=== PATIENT | male | born 1960 | race Caucasian/White ===

== ENCOUNTER 2023-12-07 09:10 | Outpatient (OUT) | payer MEDICARE, OTHER, SELFPAY ==
--- NOTE | 2023-12-07 09:17 | CT_ITS ---
[address] [address] Patient Name: MARSHALL ARTEAGA MRN: [facility]:[id number] date: 1960 Sex: M Assigned Patient Location: CT Current Patient Location: CT Accession/Order Number: [id number] Exam Date: 12/07/2023 09:20 Report Date: 12/07/2023 12:30 At the request of: MALCOM VILLEDA Procedure: CT lumbar spine wo con EXAM: CT lumbar spine wo con CLINICAL INDICATION: Lumbar Radiculopathy Acute M54.16 COMPARISON: None TECHNIQUE: Multiple axial images were obtained of the lumbar spine. Soft tissue and bone windows in coronal and sagittal planes were obtained and reviewed. Dose reduction techniques were achieved by using automated exposure control and/or adjustment of mA and/or kV according to patient size and/or use of iterative reconstruction technique. FINDINGS: Trauma: No fracture, traumatic malalignment, facet dislocation, or epidural hemorrhage. Alignment: Slight levoconvex curvature with apex around L3-L4 could relate at least in part to patient positioning. Vertebral Body Heights: Maintained. Soft Tissues: Normal. Spondylotic Changes: Multilevel spondylotic changes include varying degrees of intervertebral disc height loss, endplate sclerosis, osteophytic ridging, and facet/ligamentum flavum hypertrophy. Disc height loss is most pronounced at L4-L5. T12-L1: Disc bulge and osteophytic ridging together minimally indent the ventral thecal sac. No high-grade spinal canal or foraminal narrowing. Mild bilateral facet hypertrophy. L1-L2: Slight disc bulge ventrally indents the ventral thecal sac. No high-grade spinal canal or foraminal narrowing. Mild bilateral facet hypertrophy. L2-L3: Small disc bulge and osteophytic ridging together indent the ventral thecal sac. Mild spinal canal narrowing. Mild bilateral foraminal narrowing. Mild bilateral facet hypertrophy. L3-L4: Disc bulge and osteophytic ridging together indent the ventral thecal sac. These in conjunction with moderate bilateral facet/ligamentum flavum hypertrophy overall result in at least moderate spinal canal narrowing. Moderate bilateral foraminal narrowing. L4-L5: Disc bulge and osteophytic ridging together indent the ventral thecal sac. These in conjunction with moderate bilateral facet/ligamentum flavum hypertrophy overall result in mild spinal canal narrowing. Moderate bilateral foraminal narrowing. L5-S1: Slight disc bulge minimally indents the ventral thecal sac. This in conjunction with mild bilateral facet hypertrophy overall result in mild spinal canal narrowing. Mild bilateral foraminal narrowing. CT/CT lumbar spine wo con IMPRESSION: 1. No acute osseous abnormalities in the lumbar spine. 2. Multilevel spondylotic changes with at least moderate spinal canal narrowing at L3-L4, contributed to by disc bulge, osteophytic ridging, and facet/ligamentum flavum hypertrophy. 3. Foraminal narrowing is moderate bilaterally at L3-L4 and L4-L5. Electronically authenticated by: HOLA BAXTER Date: 12/07/2023 12:30
== END 2023-12-07 09:11 | disposition home or self-care (01) ==
LOC: CT 09:10
PROVIDERS: PCP Internal Medicine; Visit Provider Nurse Practitioner Family
DX: M54.16 Radiculopathy, lumbar region (principal); M51.36 Other intervertebral disc degeneration, lumbar region; M54.32 Sciatica, left side; M54.50 Low back pain, unspecified; M47.816 Spondylosis without myelopathy or radiculopathy, lumbar region
CPT/HCPCS: 72131

== ENCOUNTER 2025-06-15 08:07 | Outpatient (OUT) | payer MEDICARE, OTHER, SELFPAY ==
--- OUTSIDE RECORDS SUMMARY | 2025-06-05 09:30 | XMS_ITS | Encounter Summary ---
Author Organization [facility] Address [address] [place] [address] Care Team Providers Care Anesthesiologist Assistant Certified Name Role Phone Rashaun Morales MD Primary Care Provider [phone] Barb Ocasio Unavailable [phone] Reason for Referral * Imaging (Routine) - AuthorizedSpecialtyDiagnoses / ProceduresReferred By ContactReferred To ContactRadiology Diagnoses Hypotension, unspecified hypotension type Dizziness Light headed Bradycardia Procedures Holter monitor Lenore Bray NP [address] [address] Phone: tel: fax: [facility] [address] [place] [address] Phone: tel: fax: Referral IDStatusReasonStart DateExpiration DateVisits RequestedVisits [id number] Encounter Details DateTypeDepartmentCare Team (Latest Contact Info)Evpghqhulfh82/04/2025 9:30 AM ESTOffice Visit [facility] [address] [facility] [address] [place] [address] Lenore Bray NP [address] [facility] [address] [place] [address] Hypotension, unspecified hypotension type (Primary Dx); Dizziness; Light headed; Bradycardia Social History Tobacco UseTypesPacks/DayYears UsedDateSmoking Tobacco: FormerCigarettesQuit: 2003Smokeless Tobacco: FormerChew Tobacco Cessation:Counseling Given: Yes Alcohol UseStandard Drinks/WeekCommentsYes0 (1 standard drink = 0.6 oz pure alcohol)AUDIT-CAnswerDate RecordedQ1: How often do you have a drink containing alcohol?4 or more times a week03/08/2023Q2: How many drinks containing alcohol do you have on a typical day when you are drinking?1 or Q3: How often do you have six or more drinks on one occasion?Never03/08/2023HQ-2AnswerDate RecordedPatient Health Questionnaire-2 Fpbby051Sex and Gender InformationValueDate RecordedSex Assigned at BirthNot on fileLegal SexMale 10/14/2022 7:00 PM EDTGender IdentityNot on fileSexual OrientationNot on file documented as of this encounter Last Filed Vital Signs Vital SignReadingTime TakenCommentsBlood Mvwmunep277/5806/05/2025 9:32 AM EST Smuos628806/05/2025 9:32 AM ESTTemperature--Respiratory Mmza854308/05/2024 9:32 AM ESTOxygen Kjgvwnlwdr57%06/05/2025 9:32 AM ESTInhaled Oxygen Concentration-- Yhiuau57.4 kg (186 lb)06/05/2025 9:32 AM UNUSoupoa481.8 cm (5' 10 )06/05/2025 9:32 AM ESTBody Mass Index26.6906/05/2025 9:32 AM ESTdocumented in this encounter Functional Status * Over the past 2 weeks, how often have you been bothered by any of the following problems?QuestionAnswerDate of AssessmentAuthorLittle interest or pleasure in doing thingsNot at all06/05/2025 9:27 AM Pancho WANeling down, depressed, or hopelessNot at all06/05/2025 9:27 AM SEDRICK WAN Patient Health Questionnaire-2 Szreq49508/05/2024 9:27 AM SEDRICK WAN documented as of this encounter Progress Notes * Lenore Bray NP - 06/05/2025 9:30 AM EST Images from the original note were not included. Subjective Patient ID: Hardki Mayo is a 65 y.o. male who presents for No chief complaint on file.. Hardik presents today for issues with his blood pressure running low. He states that he a stomach virous a week ago and he feels run down and his BP has been running lowsince he was sick. He is feeling lite headed and dizzy when he would stand up. He did have diarrheafor 3-4 days and he is still very tired Over the past 2 weeks, how often have you been bothered by any of the following problems? Little interest or pleasure in doing things: Not at all Feeling down, depressed, or hopeless: Not at all Patient Health Questionnaire-2 Score: 0 Current Outpatient Medications on File Prior to Visit Medication Sig Dispense Refill allopurinol (Zyloprim) 300 MG tablet TAKE 1 TABLET BY MOUTH DAILY 90 tablet 2 aspirin 81 MG EC tablet Take 1 tablet by mouth 1 (one) time each day at the same time. atorvastatin (Lipitor) 80 MG tablet TAKE 1 TABLET BY MOUTH AT BEDTIME 90 tablet 2 azithromycin (Zithromax) 250 MG tablet 2 tabs x 1 day, then 1 tab x 4 days. 6 tablet 0 cetirizine (ZyrTEC) 10 MG tablet Take 1 tablet by mouth Daily as needed for allergies. cyclobenzaprine (Flexeril) 10 MG tablet Take 1 tablet (10 mg) by mouth as needed at bedtime for muscle spasms 30 tablet 0 ezetimibe (Zetia) 10 MG tablet TAKE 1 TABLET BY MOUTH DAILY 90 tablet 2 fexofenadine (Laury) 180 MG tablet Take 1 tablet (180 mg) by mouth Daily as needed (alleriges) 90tablet 3 fexofenadine-pseudoephedrine ER (Laury-D 24) 180-240 MG 24 hr tablet Take 1 tablet by mouth Dailyfor 7 days Do not crush, chew, or split. 7 tablet 0 Fluticasone-Salmeterol 100-50 MCG/ACT aerosol powder INHALE 1 PUFF DAILY NEEDED for SHORTNESS OFBREATH 60 each 3 gabapentin (Neurontin) 300 MG capsule Take 300 mg by mouth in the morning and 300 mg before bedtime. meloxicam (Mobic) 15 MG tablet TAKE 1 TABLET BY MOUTH DAILY 90 tablet 2 olmesartan-hydroCHLOROthiazide (BENIcar HCT) 40-12.5 MG tablet TAKE 1 TABLET BY MOUTH IN THE MORNING 100 tablet 3 No current facility-administered medications on file prior to visit. I have reviewed and reconciled the history and medication list with the patient today. Allergies Allergen Reactions Penicillin G Unknown Sulfa Antibiotics Unknown Social History Tobacco Use Smoking status: Former Current packs/day: 0.00 Types: Cigarettes Quit date: 2002 Years since quittin.8 Smokeless tobacco: Former Types: Chew Vaping Use Vaping status: Never Used Substance Use Topics Alcohol use: Yes Drug use: Never Family History Problem Relation Name Age of Onset Prostate cancer Father Past Medical History: Diagnosis Date Hammer toe of right foot Hyperlipidemia Hypertension Past Surgical History: Procedure Laterality Date ARTHRODESIS Right 04/18/2019 1st ARTHRODESIS Right 08/18/2019 2nd PIP fusion, hardware removal IR INJECTION EPIDURAL STEROID Right 03/21/2024 L5-S1 IR INJECTION EPIDURAL STEROID 08/08/2024 L5-S1 Visit Vitals Smoking Status Former Review of Systems Constitutional: Positive for fatigue. HENT: Negative. Eyes: Negative. Respiratory: Negative. Cardiovascular: Negative. Gastrointestinal: Positive for diarrhea, nausea and vomiting. Genitourinary: Negative. Musculoskeletal: Negative. Skin: Negative. Neurological: Positive for dizziness, weakness and light-headedness. Psychiatric/Behavioral: Negative. Objective Physical Exam Vitals reviewed. Constitutional: Appearance: Normal appearance. HENT: Head: Normocephalic. Nose: Nose normal. Mouth/Throat: Mouth: Mucous membranes are moist. Pharynx: Oropharynx is clear. Eyes: Conjunctiva/sclera: Conjunctivae normal. Cardiovascular: Rate and Rhythm: Bradycardia present. Pulmonary: Effort: Pulmonary effort is normal. Skin: General: Skin is warm and dry. Neurological: General: No focal deficit present. Mental Status: He is oriented to person, place, and time. Psychiatric: Mood and Affect: Mood normal. Behavior: Behavior normal. Thought Content: Thought content normal. Judgment: Judgment normal. Assessment/Plan Diagnoses and all orders for this visit: Hypotension, unspecified hypotension type - Comprehensive metabolic panel; Future - Holter monitor; Future BP meds stopped at this time. Pt to continue to monitor BP. We will check some lab. If HR continuesto run low, and after results of testing, may need cardiology referral. Dizziness - Comprehensive metabolic panel; Future - Holter monitor; Future - BP meds stopped at this time. Pt to continue to monitor BP. We will check some lab. If HR continues to run low, and after results of testing, may need cardiology referral. Light headed - Comprehensive metabolic panel; Future - Holter monitor; Future - Await lab Bradycardia - Holter monitor; Future - BP meds stopped at this time. Pt to continue to monitor BP. We will check some lab. If HR continues to run low, and after results of testing, may need cardiology referral. No follow-ups on file. documented in this encounter Plan of Treatment NameTypePriorityAssociated DiagnosesOrder ScheduleHolter monitorImagingRoutine Hypotension, unspecified hypotension type Dizziness Light headed Bradycardia Expected: 06/05/2025 (Approximate), Expires: 06/05/2026documented as of this encounter Procedures Procedure NamePriorityDate/TimeAssociated DiagnosisCommentsCOMPREHENSIVE METABOLIC HUCKSRqyzfdq98/04/2025 1:10 PM EST Hypotension, unspecified hypotension type Dizziness Light headed documented in this encounter Results * Comprehensive metabolic panel (06/05/2025 1:10 PM EST)ComponentValueRef Range Test MethodAnalysis TimePerformed AtPathologist VpktanxqaUjpdxgp7855 - 99 mg/dLQUESTComment: ? Fasting reference interval XXE578 - 25 mg/dLQUESTCreatinine1.080.70 - 1.35 mg/nKNPMZNMRYZ93> OR = 60 mL/min/1.75q4PPGPSTWX/CREATININE RATIOSEE NOTE:6 (calc)QUESTComment: ?? Not Reported: BUN and Creatinine are within ?? reference range. ? Vteijp291090 - 146 mmol/LQUESTPotassium, Bld4.23.5 - 5.3 mmol/LOCJBRLhgjnvjj063 98 - 110 mmol/LQUESTCarbon Gjynoof1516 - 32 mmol/LQUESTCalcium9.88.6 - 10.3 mg/dLQUESTPROTEIN, TOTAL6.56.1 - 8.1 g/dLQUESTALBUMIN4.63.6 - 5.1 g/dLQUEST GLOBULIN1.91.9 - 3.7 g/dL (calc)QUESTALBUMIN/GLOBULIN RATIO2.41.0 - 2.5 (calc) QUESTBILIRUBIN, TOTAL0.90.2 - 1.2 mg/dLQUESTALKALINE KPANKWWITNE3411 - 144 U/L IZARMHJW4186 - 35 U/XMPNOYOSN781 - 46 U/LQUESTSpecimen (Source)Anatomical Location / LateralityCollection Method / VolumeCollection TimeReceived TimeBlood Venous blood specimen / Xwthkhn5206/05/2025 1:10 PM EST06/05/2025 1:10 PM EST Narrative Resulting Agency Comment Performing Organization Information ?Site ID: [id number] ?Name: [facility] ?Address: [address] [place] [id number] ?Director: Ameya Beltrán MD Authorizing ProviderResult TypeResult StatusLenore Bray NPLAB BLOOD ORDERABLESFinal ResultPerforming OrganizationAddressCity/State/ZIP CodePhone Number QUEST documented in this encounter Visit Diagnoses Diagnosis Hypotension, unspecified hypotension type- Primary Dizziness Dizziness and giddiness Light headed Dizziness and giddiness Bradycardia Other specified cardiac dysrhythmias documented in this encounter Care Teams Team MemberRelationshipSpecialtyStart DateEnd Date Rashaun Morales MD [address] [facility] [address] [place] [address] PCP - GeneralInternal Medicine12/08/22 aBrb Ocasio PA [address] [place] [address] [place] [address] PCP - ACO Reach09/08/24documented as of this encounter
--- OUTSIDE RECORDS SUMMARY | 2025-06-11 10:20 | XMS_ITS | Encounter Summary ---
Author Organization [facility] Address [address] [place] [address] Care Team Providers Care Senior Policy Associate Name Role Phone Rashaun Morales MD Primary Care Provider [phone] Reason for Visit * ReasonCommentsNew PatientPatient is here today to establish care as a new patient. Per Dr. Nunez request. Patient complainsof Dizziness/lightheaded, fatigue, chest tightness, SOB/PAULINO.Patient denies palpitations/racing heart. Patient states he is off his blood pressure medication, for about a week, Olmastartan which he feels is contributing to his low heart rate and dizziness.HypertensionPacemaker CheckDizzinessDizziness/lightheaded with position changes/bending overFatigueIncreased fatigueChest PainChest tightness which occurs when sittingShortness of BreathSOB/PAULINO with activity Encounter Details DateTypeDepartmentCare Team (Latest Contact Info)Lqtiwoenanr04/10/2025 10:20 AM ESTOffice Visit [facility] [address] [place] [address] Neno Emery MD [address] [place] [address] Dizziness (Primary Dx); Bradycardia; Palpable abdominal aorta Social History Tobacco UseTypesPacks/DayYears UsedDateSmoking Tobacco: FormerCigarettesStarted: 06/11/2005Smokeless Tobacco: NeverSex and Gender InformationValueDate Recorded Sex Assigned at BlczaTlvj12/07/2025 9:48 AM ESTLegal ZfnLxga67/05/2025 10:48 AM ESTGender XdjarbtoNxsh77/07/2025 9:48 AM ESTSexual OrientationHeterosexual or Xawpucrw14/07/2025 9:48 AM ESTdocumented as of this encounter Last Filed Vital Signs Vital SignReadingTime TakenCommentsBlood Mhqfvxki922 10:36 AM EST Hglwz095906/11/2025 10:36 AM ESTTemperature--Respiratory Rate--Oxygen Saturation 96%06/11/2025 10:36 AM ESTInhaled Oxygen Concentration--Pottqe09.2 kg (190 lb) 06/11/2025 10:20 AM HHDLxlerz094.8 cm (5' 10 )06/11/2025 10:20 AM ESTBody Mass Index27.26108/11/2024 10:20 AM ESTdocumented in this encounter Functional Status * BPAnswerDate of RglbtizrsdKvehbi179 10:36 AM Mariann Alva MA * PulseAnswerDate of AnokoqxsncFxefts3545/10/2025 10:36 AM Mariann Alva MA * Audit Alcohol ScreeningQuestionAnswerDate of AssessmentAuthorHow many standard drinks containing alcohol do you have on a typical day? 10:26 AM Mariann Alva MA * Patient PositionAnswerDate of ZmztbsdfqcAladpiEkrdoinm31/10/2025 10:36 AM Mariann Clancy MA * BPAnswerDate of ZfkmpeletkHkgjvy744/ 10:36 AM Mariann Alva MA * PulseAnswerDate of SvzrkqlacpWymyqk7658/10/2025 10:36 AM Mariann Alva MA * HuM7SzlpliTsxf of WfcsjpmapcAcjwnc5749/10/2025 10:36 AM Mariann Alva MA * BP LocationAnswerDate of AssessmentAuthorLesancta [facility]06/11/2025 10:36 AM Mariann Clancy MA * Audit Alcohol ScreeningQuestionAnswerDate of AssessmentAuthorHow many standard drinks containing alcohol do you have on a typical day? 10:26 AM Mariann Alva MA * Patient PositionAnswerDate of NetvfwlkzyKfwpqsVsxxzown97/10/2025 10:36 AM Mariann Clancy MA documented as of this encounter Progress Notes * Neno Emery MD - 06/11/2025 10:20 AM EST Subjective Patient ID: Hardik Mayo is a 65 y.o. male who presents for New Patient (Patient is here today to establish care as a new patient. Per Dr. Nunez request. Patient complains of Dizziness/lightheaded, fatigue, chest tightness, SOB/PAULINO.Patient denies palpitations/racing heart. Patient states he isoff his blood pressure medication, for about a week, Olmastartan which he feels is contributing to his low heart rate and dizziness.), Hypertension, Pacemaker Check, Dizziness (Dizziness/lightheaded with position changes/bending over), Fatigue (Increased fatigue), Chest Pain (Chest tightness which occurs when sitting), and Shortness of Breath (SOB/PAULINO with activity). Feeling tired and run down, BP OK but heart rate slow HR in 50s. Just sitting. Able to start a chainsaw, vacuum, trims with weed eater. No CP or SOB with those. No presyncope. Can get lightheaded when standing up after bending to start chainsaw. Can be short of breath splitting and stacking fire wood (has asthma) Retired injection molding Hypertension Associated symptoms include chest pain and shortness of breath. Dizziness Associated symptoms include chest pain and fatigue. Fatigue Associated symptoms include chest pain and fatigue. Chest Pain Associated symptoms include dizziness and shortness of breath. Shortness of Breath Associated symptoms include chest pain. Review of Systems Constitutional: Positive for fatigue. Respiratory: Positive for shortness of breath. Cardiovascular: Positive for chest pain. Neurological: Positive for dizziness. Negative for syncope and light-headedness. Objective Visit Vitals BP 121/77 (BP Location: Left arm, Patient Position: Standing) Pulse 64 Physical Exam Constitutional: Appearance: Normal appearance. He is normal weight. HENT: Head: Normocephalic and atraumatic. Cardiovascular: Rate and Rhythm: Normal rate and regular rhythm. No extrasystoles are present. Pulses: Carotid pulses are 2+ on the right side and 2+ on the left side. Radial pulses are 2+ on the right side and 2+ on the left side. Posterior tibial pulses are 2+ on the right side and 2+ on the left side. Heart sounds: Normal heart sounds. Heart sounds not distant. No murmur heard. No friction rub. No gallop. Pulmonary: Effort: Pulmonary effort is normal. Breath sounds: Normal breath sounds. Abdominal: Palpations: Abdomen is soft. Comments: Slightly prominent aortic impulse mid abdomen Musculoskeletal: Right lower leg: No edema. Left lower leg: No edema. Skin: General: Skin is warm and dry. Neurological: General: No focal deficit present. Mental Status: He is alert and oriented to person, place, and time. Mental status is at baseline. Psychiatric: Mood and Affect: Mood normal. Behavior: Behavior normal. Thought Content: Thought content normal. EKG today reviewed by me: SB 48. Otherwise normal EKG Assessment/Plan Probably asymptomatic sinus bradycardia. Will obtain 24-hour Holter monitor and routine stress to evaluate. With family history of abdominal aortic aneurysm, smoking history and prominent aorta, will obtain abdominal ultrasound to screen for aneurysm. Diagnosis Plan 1. Dizziness ECG 12 lead unit performed 2. Bradycardia 3. Palpable abdominal aorta Orders Placed This Encounter Procedures ECG 12 lead unit performed This back office order was created through the Back Office Visit Navigator section. Release to Patient: Immediately No results found for this or any previous visit (from the past 36 hours). Follow up in about 4 weeks (around 07/09/2025). documented in this encounter Plan of Treatment DateTypeDepartmentCare Team (Latest Contact Info)Zqvcgxazrqe35/17/2025 10:40 AM ESTOffice Visit [facility] [address] [place] [address] Neno Emery MD [address] [place] [phone] documented as of this encounter Procedures Procedure NamePriorityDate/TimeAssociated DiagnosisCommentsECG 12 LEAD UNIT ZROEDKVLLBzxdafi14/10/2025 10:13 AM EST Dizziness documented in this encounter Results * ECG 12 lead unit performed (06/11/2025 10:13 AM EST)Specimen (Source) Anatomical Location / LateralityCollection Method / VolumeCollection Time Received Time Narrative Authorizing ProviderResult TypeResult StatusChristopher Rupert MDECG ORDERABLES Final Result documented in this encounter Visit Diagnoses Diagnosis Dizziness- Primary Dizziness and giddiness Bradycardia Other specified cardiac dysrhythmias Palpable abdominal aorta Other symptoms involving cardiovascular system documented in this encounter Care Teams Team MemberRelationshipSpecialtyStart DateEnd Date Rashaun Morales MD [address] [place] [address] PCP - GeneralInternal Pwftdshw29/7/25documented as of this encounter
--- OUTSIDE RECORDS SUMMARY | 2025-06-15 08:12 | XMS_ITS | Encounter Summary ---
Author Organization [facility] Address [address] [place] [address] Care Team Providers Care Diet Counselor Name Role Phone Rashaun Morales MD Primary Care Provider [phone] Barb Ocasio Unavailable [phone] Encounter Details DateTypeDepartmentCare Team (Latest Contact Info)Ryeqfocazip28/04/2025Travel Social History Tobacco UseTypesPacks/DayYears UsedDateSmoking Tobacco: FormerCigarettesQuit: 2003Smokeless Tobacco: FormerChewAlcohol UseStandard Drinks/WeekCommentsYes0 (1 standard drink = 0.6 oz pure alcohol)AUDIT-CAnswerDate RecordedQ1: How often do you have a drink containing alcohol?4 or more times a week03/08/2023Q2: How many drinks containing alcohol do you have on a typical day when you are drinking?1 or Q3: How often do you have six or more drinks on one occasion?Never 03/08/2023HQ-2AnswerDate RecordedPatient Health Questionnaire-2 Score0 06/05/2025Sex and Gender InformationValueDate RecordedSex Assigned at BirthNot on fileLegal GqdHxil7910/14/2022 7:00 PM EDTGender IdentityNot on fileSexual OrientationNot on filedocumented as of this encounter Functional Status * Over the past 2 weeks, how often have you been bothered by any of the following problems?QuestionAnswerDate of AssessmentAuthorLittle interest or pleasure in doing thingsNot at all06/05/2025 9:27 AM ESTKRAUSS, DANAFeeling down, depressed, or hopelessNot at all06/05/2025 9:27 AM SEDRICK WAN Patient Health Questionnaire-2 Zwcui95008/05/2024 9:27 AM SEDRICK WAN documented as of this encounter Plan of Treatment Not on file documented as of this encounter Visit Diagnoses Not on filedocumented in this encounter Care Teams Team MemberRelationshipSpecialtyStart DateEnd Date Rashaun Morales MD [address] [facility] [address] [place] [address] PCP - GeneralInternal Medicine12/08/22 Barb Ocasio PA [address] [facility] [address] [place] [address] PCP - ACO Reach09/08/24documented as of this encounter
--- OUTSIDE RECORDS SUMMARY | 2025-06-15 08:13 | XMS_ITS | Encounter Summary ---
Author Organization [facility] Address [address] [place] [address] Care Team Providers Care Manager Child Name Role Phone Rashaun Morales MD Primary Care Provider [phone] Barb Ocasio Unavailable [phone] Reason for Visit * ReasonOnset WgobDiqchjtzXdsinky80/05/2025 Encounter Details DateTypeDepartmentCare Team (Latest Contact Info)Xbdtshznhpd39/05/2025Results Follow-Up [facility] [address] [place] [address] Summer Hernandez LPN [address] [place] [address] Comprehensive metabolic panel Social History Tobacco UseTypesPacks/DayYears UsedDateSmoking Tobacco: FormerCigarettesQuit: [...] InformationValueDate RecordedSex Assigned at BirthNot on fileLegal EgwMyvu3110/14/2022 7:00 PM EDTGender IdentityNot on fileSexual OrientationNot on filedocumented as of this encounter Miscellaneous Notes * Telephone Encounter - Summer Hernandez LPN - 06/06/2025 1:12 PM EST Lm on vm * Telephone Encounter - Summer Hernandez LPN - 06/06/2025 1:11 PM EST ----- Message from Lenore Bray sent at 06/06/2025 10:34 AM EST ----- Let pt know there are no signs of dehydration. Labs are WNL ----- Message ----- From: [facility] Results In Sent: 06/06/2025 5:19 AM EST To: Lenore Bray NP documented in this encounter Plan of Treatment Not on file documented as of this encounter Visit Diagnoses Not on filedocumented in this encounter Care Teams Team MemberRelationshipSpecialtyStart DateEnd Date Rashaun Morales MD [address] [facility] [address] [place] [address] PCP - GeneralInternal Medicine12/08/22 Barb Ocasio PA [address] [place] [address] PCP - ACO Reach09/08/24documented as of this encounter
--- OUTSIDE RECORDS SUMMARY | 2025-06-15 08:13 | XMS_ITS | Encounter Summary ---
Author Organization [facility] Address [address] [facility] [address] Care Team Providers Care Clerical Secretary Name Role Phone Rashaun Morales MD Primary Care Provider [phone] Barb Ocasio Unavailable Encounter Details DateTypeDepartmentCare Team (Latest Contact Info)Gyssoxvqdbi76/04/2025amboo flowsheet [facility] [address] [place] [phone] Lenore Bray, RETIREMENT VILLAGE MANAGER [address] [place] [address] Social History Tobacco UseTypesPacks/DayYears UsedDateSmoking Tobacco: FormerCigarettesQuit: [...] InformationValueDate RecordedSex Assigned at BirthNot on fileLegal PahDwoz1810/14/2022 7:00 PM EDTGender IdentityNot on fileSexual OrientationNot on filedocumented as of this encounter Plan of Treatment Not on file documented as of this encounter Visit Diagnoses Not on filedocumented in this encounter Care Teams Team MemberRelationshipSpecialtyStart DateEnd Date Rashaun Mroales MD [address] [facility] [address] [place] [address] PCP - GeneralInternal Medicine12/08/22 Barb Ocasio PA [address] [facility] [address] [place] [address] PCP - ACO Reach09/08/24documented as of this encounter
--- OUTSIDE RECORDS SUMMARY | 2025-06-15 08:14 | XMS_ITS | Clinical Summary ---
Author Organization [facility] Address [address] [place] [address] Care Team Providers Care Mail Censor Name Role Phone Rashaun Morales MD Primary Care Provider [phone] Barb Ocasio Unavailable [phone] Allergies Active AllergyReactionsCriticalityNoted DateCommentsPenicillin GUnknown 03/07/2023Sulfa HwyhuofefdcUhyzbns62/06/2023 Medications MedicationSigDispense QuantityRefillsLast FilledStart DateEnd DateStatus aspirin 81 MG EC tablet Take 1 tablet by mouth 1 (one) time each day at the same time.Active cetirizine (ZyrTEC) 10 MG tablet Take 1 tablet by mouth Daily as needed for allergies.Active cyclobenzaprine (Flexeril) 10 MG tablet Indications:Degenerative disc disease, lumbarTake 1 tablet (10 mg) by mouth as needed at bedtime for muscle spasms 30 tablet 4Active Fluticasone-Salmeterol 100-50 MCG/ACT aerosol powder Indications:Mild intermittent asthma without complication (HCC)INHALE 1 PUFF DAILY NEEDED for SHORTNESS OF BREATH 60 each 4Active gabapentin (Neurontin) 300 MG capsule Take 300 mg by mouth in the morning and 300 mg before bedtime.5Active azithromycin (Zithromax) 250 MG tablet Indications:Acute non-recurrent frontal sinusitis2 tabs x 1 day, then 1 tab x 4 days. 6 tablet 5Active fexofenadine (Laury) 180 MG tablet Indications:Allergy, initial encounterTake 1 tablet (180 mg) by mouth Daily as needed (alleriges) 90 tablet [id number] ezetimibe (Zetia) 10 MG tablet Indications:Mixed hyperlipidemiaTAKE 1 TABLET BY MOUTH DAILY 90 tablet 5Active atorvastatin (Lipitor) 80 MG tablet Indications:Mixed hyperlipidemiaTAKE 1 TABLET BY MOUTH AT BEDTIME 90 tablet 5Active meloxicam (Mobic) 15 MG tablet Indications:Chronic gouty arthritisTAKE 1 TABLET BY MOUTH DAILY 90 tablet 5Active olmesartan-hydroCHLOROthiazide (BENIcar HCT) 40-12.5 MG tablet Indications:Essential (primary) hypertensionTAKE 1 TABLET BY MOUTH IN THE MORNING 100 tablet /Discontinued fexofenadine-pseudoephedrine ER (Laury-D 24) 180-240 MG 24 hr tablet Indications:Allergy, initial encounterTake 1 tablet by mouth Daily for 7 days Do not crush, chew, or split. 7 tablet Discontinued(Therapy completed) allopurinol (Zyloprim) 300 MG tablet Indications:Gout, unspecifiedTAKE 1 TABLET BY MOUTH DAILY 90 tablet Discontinued Active Problems ProblemNoted DateDiagnosed DateDegenerative disc disease, cikcim8203/07/2023 Essential ebycidwpdfho82/06/7445Kekn89/06/2023Hallux valgus (acquired), right foot03/07/2023Mild intermittent asthma without /06/2023Mixed qwkyrxymhotaup85/06/2023Hammer toe of right foot03/07/2023Family history of prostate nniggb7911/14/2018Long term current use of anticoagulant therapy 11/14/2018Nicotine vtwexvyekv21/15/2019Chronic gouty hmaenogpg47/21/2017Other allergic /04/2011 Encounters DateTypeDepartmentCare GqcvMulvdznepzm57/05/2025Results Follow-Up [facility] [address] [place] [place] [address] Summer Hernandze LPN Comprehensive metabolic panel06/05/2025 9:30 AM ESTOffice Visit [facility] [place] [address] Lenore Bray NP Hypotension, unspecified hypotension type (Primary Dx); Dizziness; Light headed; Pkhtovvihpk39/04/2025amboo flowsheet [facility] [place] [address] Lenore Bray NP 06/05/20252537Krvtix33/24/2025Refill [facility] [address] [place] [address] Rashaun Morales MD Gout, unspecified; Mixed hyperlipidemia ; Chronic gouty arthritisfrom Last 3 Months Immunizations ImmunizationAdministration DatesNext DueInfluenza, injectable, MDCK, preservative free, ahcwcytghiwd76/02/2022Influenza, injectable, quadrivalent, preservative free06/13/2020Influenza, seasonal, intradermal, preservative free 05/10/2017,05/30/2014Tetanus toxoid, /08/2014Zoster, Recombinant 06/03/2022 Family History Medical HistoryRelationNameCommentsProstate cancerFatherRelationNameStatus CommentsFatherDeceasedMotherDeceased Social History Tobacco UseTypesPacks/DayYears UsedDateSmoking Tobacco: FormerCigarettesQuit: [...] drinks on one occasion?Never03/08/2023HQ-2AnswerDate RecordedPatient Health Questionnaire-2 Hmzlc79208/05/2024Sex and Gender InformationValueDate RecordedSex Assigned at BirthNot on fileLegal SexMale 10/14/2022 7:00 PM EDTGender IdentityNot on fileSexual OrientationNot on file Last Filed Vital Signs Vital SignReadingTime TakenCommentsBlood Uhruzqwi517/5811 9:32 AM EST Ntepz152306/05/2025 9:32 AM ZOWQcywxpbmxzj46.4 ??C (97.5 ??F)09/14/2024 2:52 PM ESTRespiratory Jtop963208/05/2024 9:32 AM ESTOxygen Aclajcxzft78%06/05/2025 9:32 AM ESTInhaled Oxygen Concentration--Mjlpgp63.4 kg (186 lb)06/05/2025 9:32 AM EST Dgsdrq545.8 cm (5' 10 )06/05/2025 9:32 AM ESTBody Mass Index26.6906/05/2025 9:32 AM EST Plan of Treatment Health MaintenanceDue DateLast DoneCommentsCT Timepxbuarhj1958FOBT 1958 1959Ssrcolmqorrhu1958Pneumococcal Vaccine: 65+ Years (1 of 2 - PCV) 1977FIT, 08/28/2017FIT-DNA/, 04/16/2021OVID-19 Vaccine (2024- season)/09/2020, 10/29/2020, 10/08/2020Influenza Vaccine (#1)/09/2021, 06/13/2020, 05/10/2017, Additional history dnkhdkIncbomzxyqi54/02/203112/09/2020, 07/03/2021, 07/03/2021 Colorectal Cancer Gzzrktftw30/02/2031 Procedures Procedure NamePriorityDate/TimeAssociated DiagnosisCommentsCOMPREHENSIVE METABOLIC GNLKDLswdmpr09/04/2025 1:10 PM EST Hypotension, unspecified hypotension type Dizziness Light headed AWINPFIKHBKRzgfvmy59/02/2021 12:00 PM EST LAB COLOGUARD?? COLON CANCER VPIOZQSislqme56/15/2021 FECAL GLOBIN BY YXTOLTNNUXGFFMCUpvjqoe86/27/2019 from Last 3 Months or Most Recently Relevant to Health Maintenance Results * Comprehensive metabolic panel (06/05/2025 1:10 PM EST)ComponentValueRef Range Test MethodAnalysis TimePerformed AtPathologist RyogaizijKrfmnxk2840 - 99 mg/dLQUESTComment: ? Fasting reference interval TGP994 - 25 mg/dLQUESTCreatinine1.080.70 - 1.35 mg/aFOLIMOEDHF80> OR = 60 mL/min/1.19m1SLTFRHUX/CREATININE RATIOSEE NOTE:6 - (calc)QUESTComment: ?? Not Reported: BUN and Creatinine are within ?? reference range. ? Biqcct478763 - 146 mmol/LQUESTPotassium, Bld4.23.5 - 5.3 mmol/HESNYWWtfmofid852 98 - 110 mmol/LQUESTCarbon Hzplsgp6138 - 32 mmol/LQUESTCalcium9.88.6 - 10.3 mg/dLQUESTPROTEIN, TOTAL6.56.1 - 8.1 g/dLQUESTALBUMIN4.63.6 - 5.1 g/dLQUEST GLOBULIN1.91.9 - 3.7 g/dL (calc)QUESTALBUMIN/GLOBULIN RATIO2.41.0 - 2.5 (calc) QUESTBILIRUBIN, TOTAL0.90.2 - 1.2 mg/dLQUESTALKALINE CGCMIKIUUAO4500 - 144 U/L ZJIOYTXL3084 - 35 U/GDHGGNJED812 - 46 U/LQUESTSpecimen (Source)Anatomical Location / LateralityCollection Method / VolumeCollection TimeReceived TimeBlood Venous blood specimen / Edpupdc8406/05/2025 1:10 PM EST06/05/2025 1:10 PM EST Narrative Resulting Agency Comment Performing Organization Information ?Site ID: [id number] ?Name: [facility] ?Address: [address] [place] [address], [address] [place] [id number] ?Director: Ameya Beltrán MD Authorizing ProviderResult TypeResult StatusLenore Bray NPLAB BLOOD ORDERABLESFinal ResultPerforming OrganizationAddressCity/State/ZIP CodePhone Number [facility]ST * Colonoscopy (07/03/2021 12:00 PM EST)Anatomical RegionLateralityModality EndoscopySpecimen (Source)Anatomical Location / LateralityCollection Method / VolumeCollection TimeReceived Time07/03/2021 12:00 PM EST Narrative 07/03/2021 12:00 PM EST PERFORMED AT [facility] LOCATION:[id number] Negative Procedure Note CONVERSION, GENERIC - 12/16/2022 PERFORMED AT [facility] LOCATION:[id number] Negative Authorizing ProviderResult TypeResult StatusDanipee Morales MDENDOSCOPY PROCEDURE ORDERABLESFinal Result * (ABNORMAL) Cologuard?? colon cancer screening (04/16/2021)ComponentValueRef RangeTest MethodAnalysis TimePerformed AtPathologist SignatureCOLOGUARD RESULT REPORTABLEPositive(A)NegativeNOMS LEGACY EXTERNAL LABComment: POSITIVE TEST RESULT. A positive Cologuard result should be followed with a colonoscopy or visual examination of the colon. The normal value (reference range) for this assay is negative. TEST DESCRIPTION: Composite algorithmic analysis of stool DNA-biomarkers with hemoglobin immunoassay. ?? Quantitative values of individual biomarkers are not reportable and are not associated with individual biomarker result reference ranges. Cologuard is intended for colorectal cancer screening ofadults of either sex, 45 years or older, who are at average-risk for colorectal cancer (CRC). Cologuard has been approved for use by the U.S. FDA. The performance of Cologuard was established in a cross sectional study of average-risk adults aged 50-84. Cologuard performance in patients ages 45 to 49 years was estimated by sub-group analysis of near-age groups. Colonoscopies performed for a positive result may find as the most clinically significant lesion: colorectal cancer [4.0%], advanced adenoma (including sessile serrated polyps greater than or equal to 1cm diameter) [20%] or non- advanced adenoma [31%]; or no colorectal neoplasia [45%]. These estimates are derived from a prospective cross-sectional screening study of 10,000 individuals at average risk for colorectal cancer who were screened with both Cologuard and colonoscopy. (Oscar Rae al, N Engl J Med 2014;370(14):8906-7127.) Cologuard may produce a false negative or false positive result (no colorectal cancer or precancerous polyp present at colonoscopy follow up). A negative Cologuard test result does not guarantee the absence of CRC or advanced adenoma (pre-cancer). The current Cologuard screening interval is every 3 years. ([place] [employer] Society and U.S. Multi-Society Task Force). Cologuard performance data in a 10,000 patient pivotal study using colonoscopy as the reference method can be accessed at the following location: www.[employer]/results. Additional description of the Cologuard test process, warnings and precautions can be found at www.cologuard.com. Specimen (Source)Anatomical Location / LateralityCollection Method / Volume Collection TimeReceived Time04/16/2021 Narrative Authorizing ProviderResult TypeResult StatusDajuana MIRANDA MOLECULAR DIAGNOSTICS ORDERABLESFinal ResultPerforming OrganizationAddressCity/State/ZIP CodePhone Number [facility] * FECAL GLOBIN BY IMMUNOCHEMISTRY (10/26/2018)ComponentValueRef RangeTest Method Analysis TimePerformed AtPathologist SignatureRESULTNOT DETECTEDNOT DETECTED [facility] EXTERNAL LABSpecimen (Source)Anatomical Location / Laterality Collection Method / VolumeCollection TimeReceived Time10/26/2018 Narrative Authorizing ProviderResult TypeResult StatusDanipee [place]ER[place] LABSFinal ResultPerforming OrganizationAddressCity/State/ZIP CodePhone Number [facility] from Last 3 Months or Most Recently Relevant to Health Maintenance Insurance Care Teams Team MemberRelationshipSpecialtyStart DateEnd Rashaun Morales MD [address] [facility] [address] [place] [address] PCP - GeneralInternal Medicine12/08/22 Barb Ocasio PA [address] [facility] [address] [place] [address] PCP - ACO Reach09/08/24
--- OUTSIDE RECORDS SUMMARY | 2025-06-15 08:15 | XMS_ITS | Clinical Summary ---
Author Organization [facility] tem Address [id number] [address] [place] [address] Care Team Providers Care Optometry Assistant Name Role Phone Rashaun Morales MD Primary Care Provider [phone] Allergies Active AllergyReactionsCriticalityNoted DateCommentsPenicillinsOther (See Comments)07/02/2021 As a child Sulfa (Sulfonamide Antibiotics)Other (See Comments)07/02/2021 As a child Medications MedicationSigDispense QuantityRefillsLast FilledStart DateEnd DateStatus olmesartan (BENICAR) 20 mg tablet Take 12.5 mg by mouth daily.Active meloxicam (MOBIC) 15 mg tablet Take 15 mg by mouth daily.Active atorvastatin (LIPITOR) 80 mg tablet Take 80 mg by mouth daily.Active ezetimibe (ZETIA) 10 mg tablet Take 10 mg by mouth daily.Active allopurinoL (ZYLOPRIM) 300 mg tablet Take 300 mg by mouth daily.Active mometasone-formoterol (DULERA) 100-5 mcg/actuation inhaler Inhale 2 puffs 2 (two) times a day.Active Active Problems No known active problems Family History Medical HistoryRelationNameCommentsCancerFatherprostateCancerMotherlung HypertensionMotherRelationNameStatusCommentsFatherDeceasedMotherDeceased Social History Tobacco UseTypesPacks/DayYears UsedDateSmoking Tobacco: FormerSmokeless Tobacco: NeverAlcohol UseStandard Drinks/WeekCommentsYes0 (1 standard drink = 0.6 oz pure alcohol)occassional beerChildcareAnswerDate RblpmbtgNkavnltnmLrtcnra08/12/2019 EmploymentAnswerDate TixwzyfrMzvzwijuxvAxwiuuu89/12/2019Sex and Gender InformationValueDate RecordedSex Assigned at BirthNot on fileLegal SexMale 03/07/2015 11:24 AM EDTGender IdentityNot on fileSexual OrientationNot on file Last Filed Vital Signs Vital SignReadingTime TakenCommentsBlood Rygksvxv069/8012 8:33 AM EST Mkfoi786107/03/2021 8:33 AM DHOZnvomchznko41.7 ??C (98 ??F)07/03/2021 7:09 AM EST Respiratory Igpf138309/03/2020 8:33 AM ESTOxygen Etxswhlghv60%07/03/2021 8:33 AM ESTInhaled Oxygen Concentration--Mbkwwf80.2 kg (190 lb)07/03/2021 7:09 AM EST Xypzxr241.3 cm (5' 9 )07/03/2021 7:09 AM ESTBody Mass Index28.0607/03/2021 7:09 AM EST Plan of Treatment Health MaintenanceDue DateLast DoneCommentsDepression Qkylxupkb14/06/1970Tobacco Kofyvinua83/06/1970Adult BMI Cbwvsyfoa98/06/1976DTaP,Tdap and Td Vaccines (1 - Tdap)1977Zoster (Shingles) Vaccine (1 of 2)2008Fall Risk Screening 2023OVID-19 Vaccine (3 - season)/, 10/08/2020 Influenza Kyqzosh72/07/2020, 05/10/2017RSV ( or age 60+ yrs) (1 - 1-dose 75+ series)2033 [employer] Not on file Insurance Care Teams Team MemberRelationshipSpecialtyStart DateEnd Date Rashaun Morales MD [address] [facility] [address] [place] [address] PCP - GeneralInternal Stbkpequ04/1/21
--- OUTSIDE RECORDS SUMMARY | 2025-06-15 08:15 | XMS_ITS | Clinical Summary ---
Author Organization [facility] Address [address] [place] [place] [address] Care Team Providers Care Human Factors Ergonomist Name Role Phone Rashaun Morales MD Primary Care Provider [phone] Allergies Active AllergyReactionsCriticalityNoted DateCommentsPenicillinsOther,Unknown 07/02/2021 As a child Sulfa (Sulfonamide Antibiotics)Other,Dorpddb0307/02/2021 As a child Medications MedicationSigDispense QuantityRefillsLast FilledStart DateEnd DateStatus atorvastatin (Lipitor) 80 mg tablet Take 80 mg by mouth at bedtime.Active gabapentin (Neurontin) 300 mg capsule Take 300 mg by mouth two times daily.5Active meloxicam (Mobic) 15 mg tablet Take 15 mg by mouth in the morning.Active ezetimibe (Zetia) 10 mg tablet Take 10 mg by mouth in the morning.Active fluticasone propion-salmeteroL (Advair Diskus) 100-50 mcg/dose diskus inhaler Inhale 1 puff two times daily.Active olmesartan-hydrochlorothiazide (BENIcar HCT) 40-12.5 mg tablet Take 1 tablet by mouth in the morning.Active Active Problems ProblemNoted DateDiagnosed DateChronic pain06/08/2025rthritis of lumbosacral spine06/08/2025Inflammation of both sacroiliac wcjsdz3206/08/2025Lumbar disc /07/2025Essential kfqhltpdyfof22/06/8965Hkus40/06/2023Hallux valgus (acquired), right foot03/07/2023Hammer toe of right foot03/07/2023Mild intermittent asthma without xretyercopay29/06/2023Mixed hzkjjjpoglnwyb54/06/2023 Family history of prostate jsmxzx9011/14/2018Long term current use of anticoagulant dzmdxbr8511/14/2018Nicotine xbtqywksdz14/15/2019Chronic gouty vjoqsvtwe89/21/2017Other allergic zadmbnvl50/04/2011 Encounters DateTypeDepartmentCare DgtvLdzxxvpkzhd97/10/2025 10:20 AM ESTOffice [facility] [address] [place] [phone] Neno Emery MD Dizziness (Primary Dx); Bradycardia; Palpable abdominal aorta06/11/2025Orders Only [facility] [address] [facility] [place] [address] Viviana Felipe MA Bradycardia (Primary Dx); Dizziness; Palpable abdominal aortafrom Last 3 Months Family History Medical HistoryRelationNameCommentsHeart diseaseBrotherAortic aneurysmFather Heart diseaseFatherLung cancerMotherRelationNameStatusCommentsBrotherAliveFather DeceasedMotherDeceasedSisterDeceased Social History Tobacco UseTypesPacks/DayYears UsedDateSmoking Tobacco: FormerCigarettesStarted: 06/11/2005Smokeless Tobacco: NeverSex and Gender InformationValueDate Recorded Sex Assigned at KulnaJqfm29/07/2025 9:48 AM ESTLegal YarZqzr78/05/2025 10:48 AM ESTGender DokexcdwMxio68/07/2025 9:48 AM ESTSexual OrientationHeterosexual or Hzicmhpd2025 9:48 AM EST Last Filed Vital Signs Vital SignReadingTime TakenCommentsBlood Wlvxjaht536/7706/11/2025 10:36 AM EST Mveyb863906/11/2025 10:36 AM ESTTemperature--Respiratory Rate--Oxygen Saturation 96%06/11/2025 10:36 AM ESTInhaled Oxygen Concentration--Tanunr53.2 kg (190 lb) 06/11/2025 10:20 AM WYOJcqipk834.8 cm (5' 10 )06/11/2025 10:20 AM ESTBody Mass Index27.26108/11/2024 10:20 AM EST Plan of Treatment DateTypeDepartmentCare Team (Latest Contact Info)Etdyivcvthh45/17/2025 10:40 AM ESTOffice Visit [facility] [address] [place] [address] Neno Emery MD [address] [place] [address] Health MaintenanceDue DateLast DoneCommentsCT Pkoindlytlbf1958FOBT 1958Medicare Annual Wellness (AWV)1960 0879Uldxhhuqmduin1958 Depression Qralhnxiu32/06/1970Pneumococcal Vaccine: 50+ Years (1 of 2 - PCV) 1977Adult Mskmjad4304/07/1980FIT/Fall Risk Screening 2023FIT-DNA/OVID-19 Vaccine ( season) , 10/29/2020, 10/08/2020Influenza Vaccine (#1)2025 06/03/2022, 06/13/2020, 05/10/2017, Additional history existsColonoscopy , 07/03/2021olorectal Cancer Uhgkubooq29/02/2031Zoster ZbnpnttiLmbeiwnop89/24/2023, 06/03/2022HIB VaccinesAged OutNo longer eligible based on patient's age to complete this topicHPV VaccinesAged OutNo longer eligible based on patient's age to complete this topicIPV VaccinesAged OutNo longer eligible based on patient's age to complete this topicMeningococcal B VaccineAged OutNo longer eligible based on patient's age to complete this topic Meningococcal VaccineAged OutNo longer eligible based on patient's age to complete this topicRotavirus VaccinesAged OutNo longer eligible based on patient's age to complete this topic Procedures Procedure NamePriorityDate/TimeAssociated DiagnosisCommentsECG 12 LEAD UNIT GNIGVLFGDYyebtlu95/10/2025 10:13 AM EST Dizziness from Last 3 Months Results * ECG 12 lead unit performed (06/11/2025 10:13 AM EST)Specimen (Source) Anatomical Location / LateralityCollection Method / VolumeCollection Time Received Time Narrative Authorizing ProviderResult TypeResult StatusChristopher Rupert OSPINAECG ORDERABLES Final Result from Last 3 [place] [address] Care Teams Team MemberRelationshipSpecialtyStart DateEnd Rashaun Morales MD [address] [facility] [address] [place] [address] PCP - GeneralInternal Vknnfeyx53/7/25
--- OUTSIDE RECORDS SUMMARY | 2025-06-15 08:15 | XMS_ITS | Encounter Summary ---
Author Organization [facility] Address [address] [place] [address] Care Team Providers Care Port Warden Name Role Phone Rashaun Morales MD Primary Care Provider [phone] Reason for Referral * Imaging (Routine) - Pending ReviewSpecialtyDiagnoses / ProceduresReferred By ContactReferred To ContactCardiology Diagnoses Palpable abdominal aorta Procedures Vascular US abdominal aorta anuerysm AAA screening Neno Emery MD [address] [place] [address] Phone: tel: fax: Referral IDStatusReasonStart DateExpiration DateVisits RequestedVisits [id number] Review Perform Procedure * Cardiac Stress Testing (Routine) - Pending ReviewSpecialtyDiagnoses / ProceduresReferred By ContactReferred To ContactCardiology Diagnoses Bradycardia Dizziness Procedures Holter monitor - 48 hour Neno Emery MD [address] [place] [address] Phone: tel: fax: Referral IDStatusReasonStart DateExpiration DateVisits RequestedVisits [id number] Encounter Details DateTypeDepartmentCare Team (Latest Contact Info)Cetsevqyxno10/10/2025Orders Only [facility] [address] [place] [address] Viviana Felipe MA Bradycardia (Primary Dx); Dizziness; Palpable abdominal aorta Social History Tobacco UseTypesPacks/DayYears UsedDateSmoking Tobacco: FormerCigarettesStarted: 06/11/2005Smokeless Tobacco: NeverSex and Gender InformationValueDate Recorded Sex Assigned at MshekUmnm90/07/2025 9:48 AM ESTLegal DrnRfge47/05/2025 10:48 AM ESTGender InexawujTvak39/07/2025 9:48 AM ESTSexual OrientationHeterosexual or Jikjtlxg07/07/2025 9:48 AM ESTdocumented as of this encounter Functional Status * BPAnswerDate of VotorahlcdJtmmdl233/7706/11/2025 10:36 AM Mariann Alva MA * PulseAnswerDate of NnynbxqabeIfafzv8511/10/2025 10:36 AM Mariann Alva MA * Audit Alcohol ScreeningQuestionAnswerDate of AssessmentAuthorHow many standard drinks containing alcohol do you have on a typical day? 10:26 AM Mariann Alva MA * Patient PositionAnswerDate of DvxnvvnjmjGfckfoMpsyftjv63/10/2025 10:36 AM Mariann Clancy MA * BPAnswerDate of XpquznyufrCjtmod335/7706/11/2025 10:36 AM Mariann Alva MA * PulseAnswerDate of PdnxizxbdjRcdslu0829/10/2025 10:36 AM Mariann Alva MA * WkB8TdrypnRctm of UwkliybptpAbjwbo8847/10/2025 10:36 AM Mariann Alva MA * BP LocationAnswerDate of AssessmentAuthorLe[facility]06/11/2025 10:36 AM Mariann Clancy MA * Audit Alcohol ScreeningQuestionAnswerDate of AssessmentAuthorHow many standard drinks containing alcohol do you have on a typical day? 10:26 AM Mariann Alva MA * Patient PositionAnswerDate of FymmqpqdgvZdansnBtkczarg48/10/2025 10:36 AM EST Mariann Gonzalez MA documented as of this encounter Plan of Treatment DateTypeDepartmentCare Team (Latest Contact Info)Sbvsthcfwey94/17/2025 10:40 AM ESTOffice Visit [facility] [address] [place] [address] Neno Emery MD [address] [place] [address] NameTypePriorityAssociated DiagnosesOrder ScheduleRoutine Stress (Treadmill Only)Cardiac ServicesRoutine Bradycardia Dizziness Expected: 06/11/2025 (Approximate), Expires: 06/11/2027Holter monitor - 48 hour Cardiac ServicesRoutine Bradycardia Dizziness Expected: 06/11/2025 (Approximate), Expires: 06/11/2027Vascular US abdominal aorta anuerysm AAA screeningVascular UltrasoundRoutine Palpable abdominal aorta Expected: 06/11/2025 (Approximate), Expires: 06/11/2027documented as of this encounter Visit Diagnoses Diagnosis Bradycardia- Primary Other specified cardiac dysrhythmias Dizziness Dizziness and giddiness Palpable abdominal aorta Other symptoms involving cardiovascular system documented in this encounter Care Teams Team MemberRelationshipSpecialtyStart DateEnd Date Rashaun Morales MD [address] [facility] [address] [place] [address] PCP - GeneralInternal Qohuzwks99/7/25documented as of this encounter
--- NOTE | 2025-06-15 08:54 | US_ITS ---
The [address] [address] Patient Name: MARSHALL ARTEAGA MRN: [facility]:[id number] date: 1960 Sex: M Assigned Patient Location: CARD Current Patient Location: CARD Accession/Order Number: [id number] Exam Date: 06/15/2025 09:30 Report Date: 06/15/2025 10:43 At the request of: CHRISTELLE QUIROZ MD Procedure: US abdominal aortic aneurysm ULTRASOUND OF THE ABDOMINAL AORTA CLINICAL DATA: Palpable aorta. History of tobacco use. COMPARISON: CT lumbar spine 12/07/2023 Real-time ultrasound evaluation of the abdominal aorta was performed. Mild atherosclerotic plaque is suspected. No focal aneurysmal dilatation is seen. Proximally, the aorta measures 2.8 cm AP by 2.9 cm in transverse dimension. Through the midsegment, the aorta measures 2.5 x 3.4 cm. Distally, the aortic diameter measures 2.4 x 2.0 cm. The bifurcation is visualized and the iliac arteries are normal caliber. There is no periaortic fluid. US/US abdominal aortic aneurysm IMPRESSION: SLIGHTLY ECTATIC ABDOMINAL AORTA Impression dictated by: Barb Bro M.D. 06/15/2025 10:43 AM Dictation Location: [place] [address] Electronically authenticated by: [id number] Y Date: 06/15/2025 10:43
--- NOTE | 2025-06-15 09:19 | PC.NURSE ---
Nursing Note Cardiac Stress Test Reviewed: Medication, allergies and patient history reviewed. Stress Test: [x ] Patient tolerated stress test well. [ ] Patient unable to tolerate walking on treadmill. Switched to Lexiscan stress test. [x ] No chest pain noted per patient [ ] Chest pain that resolved prior to leaving stress lab. [ ] No dyspnea noted. [x ] Dyspnea that resolved prior to leaving stress lab. [x ] Patient left stress lab asymptomatic and hemodynamically stable. [ ] Patient taken to the Emergency Room due to non-resolving symptoms following stress test. [ x] Patient achieved target heart rate. [ ] Patient unable to achieve target heart rate. [ ] Aminophylline administered as reversal agent to Lexiscan (Regadenoson). [ ] Nitro administered. Nursing Comments:Pt had regular TM test. NO issues noted. SOB resolved within 2 minutes of rest. No cp
--- NOTE | 2025-06-15 10:58 | PM.STRESS ---
Stress Test Stress Test Requesting physician: CHRISTELLE QUIROZ Procedure: Treadmill exercise stress test General Information: Reason for Stress Test: [Bradycardia, dizziness] Cardiac History and Risk Factors: [HTN] Resting 12 - Lead Electrocardiogram: Marked sinus bradycardia Incomplete RBBB Poor R wave progression, cannot rule out anterior infarct age indeterminate Abnormal ECG Stress Test: Protocol: [Pillo protocol. The patient exercised for 4.48 minutes, reaching stage 2 supa the protocol, and achieving 7 METs. Resting HR 52 bpm, ncreasing to 136 bpm which is 88% of PMHR%. Resting BP 134/74, peak BP 148/84] Exercise Capacity: [Average] Blood Pressure Response: [Appropriate] Rhythm: [Sinus, premature supraventricular contractions, atrial bigeminy] ST - Response: [0.75 to 1.0 mm horizontal and/or downsloping ST depressions seen in leads II, III, aVF, V5-V6] Patient Response: [No chest pain] Interpretation: 1. Ischemic EKG changes in inferolateral leads seen on treadmill exercise stress test. 2. Appropriate HR and BP response to exercise. 3. Frequent supraventricular ectopy. 4. Baca Treadmill Score -0.5. Estimated 1-Year Mortality: 1.3-2.9 %. Risk Category: Moderate Risk. Angiography:May be indicated.
== END 2025-06-15 08:08 | disposition home or self-care (01) ==
LOC: CARD 08:08
PROVIDERS: PCP Internal Medicine; Visit Provider Internal Medicine Cardiovascular Disease
DX: R00.1 Bradycardia, unspecified (principal); R42 Dizziness and giddiness; R09.89 Other specified symptoms and signs involving the circulatory and respiratory systems; I77.811 Abdominal aortic ectasia; I25.6 Silent myocardial ischemia
CPT/HCPCS: 76775; 93017

== ENCOUNTER 2025-07-24 07:06 | Outpatient (OUT) | payer MEDICARE, OTHER, SELFPAY ==
--- OUTSIDE RECORDS SUMMARY | 2025-07-18 10:40 | XMS_ITS | Encounter Summary ---
Author Organization [facility] Address [address] [place] [address] Care Team Providers Care Certified Scrum Master Name Role Phone Rashaun Morales MD Primary Care Provider [phone] Reason for Visit * ReasonCommentsFollow-upPatient is here today for a follow up appointment. Patient recenlty has US, stress test, holter monitor. Patient states he feels fine, no cardiac complaints.HypertensionHyperlipidemia Encounter Details DateTypeDepartmentCare Team (Latest Contact Info)Xznuipatgpj00/17/2025 10:40 AM ESTOffice Visit [facility] [address] [place] [address] Neno Emery MD [address] [place] [address] Dizziness (Primary Dx); Cardiovascular stress test abnormal; Abdominal aortic aneurysm (AAA) 30 to 34 mm in diameter Social History Tobacco UseTypesPacks/DayYears UsedDateSmoking Tobacco: FormerCigarettesStarted: 06/11/2005Smokeless Tobacco: NeverSex and Gender InformationValueDate Recorded Sex Assigned at RybivKuds87/07/2025 9:48 AM ESTLegal AvfXyen43/05/2025 10:48 AM ESTGender XmjxywroYbdo55/07/2025 9:48 AM ESTSexual OrientationHeterosexual or Ghdjxjhg22/07/2025 9:48 AM ESTdocumented as of this encounter Last Filed Vital Signs Vital SignReadingTime TakenCommentsBlood Xmuovulk401/3243307/18/2025 10:51 AM EST Eluhi872107/18/2025 10:51 AM ESTTemperature--Respiratory Rate--Oxygen Saturation 97%07/18/2025 10:51 AM ESTInhaled Oxygen Concentration--Viyiwb10.1 kg (192 lb) 07/18/2025 10:51 AM JPLIgefjw994.8 cm (5' 10 )07/18/2025 10:51 AM ESTBody Mass Index27.5507/18/2025 10:51 AM ESTdocumented in this encounter Progress Notes * Neno Emery MD - 07/18/2025 10:40 AM EST Subjective Patient ID: Hardik Mayo is a 65 y.o. male who presents for Follow-up (Patient is here today for a follow up appointment. Patient recenlty has US, stress test, holter monitor. Patient states he feels fine, no cardiac complaints.), Hypertension, and Hyperlipidemia. I guess there are days I am tired No chest pains. Still able to do activity Not really SOB with activity Able to shovel walk from deck to garage Hypertension Pertinent negatives include no chest pain, palpitations or shortness of breath. Hyperlipidemia Pertinent negatives include no chest pain or shortness of breath. Review of Systems Respiratory: Negative for chest tightness and shortness of breath. Cardiovascular: Negative for chest pain, palpitations and leg swelling. Gastrointestinal: Negative for blood in stool. Genitourinary: Negative for hematuria. Neurological: Negative for dizziness, syncope and light-headedness. Objective Visit Vitals BP (!) 174/102 (BP Location: Left arm, Patient Position: Sitting) Pulse 54 Physical Exam Constitutional: Appearance: Normal appearance. He is normal weight. HENT: Head: Normocephalic and atraumatic. Cardiovascular: Rate and Rhythm: Normal rate and regular rhythm. Pulses: Normal pulses. Carotid pulses are 2+ on the right side and 2+ on the left side. Radial pulses are 2+ on the right side and 2+ on the left side. Heart sounds: Heart sounds not distant. No friction rub. No gallop. Pulmonary: Effort: Pulmonary effort is normal. Breath sounds: Normal breath sounds. Abdominal: Comments: Widened aortic impulse Musculoskeletal: Right lower leg: No edema. Left lower leg: No edema. Skin: General: Skin is warm and dry. Neurological: Mental Status: He is alert and oriented to person, place, and time. Psychiatric: Mood and Affect: Mood normal. Behavior: Behavior normal. Thought Content: Thought content normal. Judgment: Judgment normal. Assessment/Plan Mr. Mayo is doing well, however, BP high (holding antihypertensive and will restart), 2) has small aortic aneurysm, 3) stress test positive for ischemia. Recommend: BP <130 systolic Annual aneurysm evaluation with US for now CT with contrast chest and abdomen for aneurysm For positive stress test: We discussed alternative of coronary CTA or cath including expected risksof both and plan cath Diagnosis Plan 1. Dizziness 2. Cardiovascular stress test abnormal 3. Abdominal aortic aneurysm (AAA) 30 to 34 mm in diameter documented in this encounter Plan of Treatment DateTypeDepartmentCare Team (Latest Contact Info)Nwbtkqulexo36/05/2026 9:30 AM ESTHospital Encounter [facility] Heart [facility] [address] [place] [address] Neno Emery MD [address] [place] [address] Abnormal cardiovascular stress test08/06/2025 9:30 AM EST - 08/06/2025 10:30 AM ESTSurgery [facility] [address] [facility] [place] [address] Neno Emery MD [address] [place] [address] Coronary angiographydocumented as of this encounter Visit Diagnoses Diagnosis Dizziness- Primary Dizziness and giddiness Cardiovascular stress test abnormal Abdominal aortic aneurysm (AAA) 30 to 34 mm in diameter Abnormal cardiovascular stress test- Primary Other nonspecific abnormal cardiovascular system function study Abnormal cardiovascular stress test Other nonspecific abnormal cardiovascular system function study documented in this encounter Care Teams Team MemberRelationshipSpecialtyStart DateEnd Rashaun Morales MD [address] [place] [address] [place] [address] PCP - GeneralInternal Ecvyxnhy93/7/25documented as of this encounter
--- OUTSIDE RECORDS SUMMARY | 2025-07-24 07:09 | XMS_ITS | Encounter Summary ---
Author Organization [facility] Address [address] [place] [address] Care Team Providers Care Photonics Engineer Name Role Phone Rashaun Morales MD Primary Care Provider [phone] Reason for Referral * Imaging (Routine) - Pending ReviewSpecialtyDiagnoses / ProceduresReferred By ContactReferred To Contact Diagnoses Abdominal aortic aneurysm (AAA) without rupture, unspecified part Procedures CTA Abdomen Pelvis W IV Contrast Neno Emery MD [address] [place] [address] Phone: tel: fax: Referral IDStatusReasonStart DateExpiration DateVisits RequestedVisits [id number] Encounter Details DateTypeDepartmentCare Team (Latest Contact Info)Sudwyiigmpy56/17/2025Orders Only [facility] Heart at [facility] [address] [place] [address] [place] Abnormal cardiovascular stress test (Primary Dx); Abdominal aortic aneurysm (AAA) without rupture, unspecified part Social History Tobacco UseTypesPacks/DayYears UsedDateSmoking Tobacco: FormerCigarettesStarted: 06/11/2005Smokeless Tobacco: NeverSex and Gender InformationValueDate Recorded Sex Assigned at KxniuQzzc72/07/2025 9:48 AM ESTLegal LqqYabx86/05/2025 10:48 AM ESTGender LrmdsbiuDumh76/07/2025 9:48 AM ESTSexual OrientationHeterosexual or Dfpphokm20/07/2025 9:48 AM ESTdocumented as of this encounter Plan of Treatment DateTypeDepartmentCare Team (Latest Contact Info)Jrqvftlbwaq01/05/2026 9:[address] [facility] Heart [facility] [place] [facility] [address] [place] [address] Neno Emery MD [address] [place] [address] Abnormal cardiovascular stress test08/06/2025 9:30 AM EST - 08/06/2025 10:30 AM ESTSurgery [facility] [place] [facility] [address] [place] [address] Neno Emery MD [address] [place] [address] Coronary angiographyNameTypePriorityAssociated DiagnosesOrder ScheduleCBC and differentialLabRoutine Abnormal cardiovascular stress test Expected: 07/18/2025 (Approximate), Expires: 07/18/2026asic metabolic panelLab Routine Abnormal cardiovascular stress test Expected: 07/18/2025 (Approximate), Expires: 07/18/2026TA Abdomen Pelvis W IV ContrastImagingRoutine Abdominal aortic aneurysm (AAA) without rupture, unspecified part Expected: 07/18/2025, Expires: 07/18/2026documented as of this encounter Visit Diagnoses Diagnosis Abnormal cardiovascular stress test- Primary Other nonspecific abnormal cardiovascular system function study Abdominal aortic aneurysm (AAA) without rupture, unspecified part Abnormal cardiovascular stress test- Primary Other nonspecific abnormal cardiovascular system function study Abnormal cardiovascular stress test Other nonspecific abnormal cardiovascular system function study documented in this encounter Care Teams Team MemberRelationshipSpecialtyStart DateEnd Date Rashaun Morales MD [address] [facility] [address] [place] [address] PCP - GeneralInternal Lkyxbnir34/7/25documented as of this encounter
--- OUTSIDE RECORDS SUMMARY | 2025-07-24 07:09 | XMS_ITS | Clinical Summary ---
Author Organization [facility] Address [address] [place] [address] Care Team Providers Care Refrigeration Systems Installer Name Role Phone Rashaun Morales MD Primary Care Provider [phone] Barb Ocasio Unavailable [phone] Allergies Active AllergyReactionsCriticalityNoted DateCommentsPenicillin GUnknown 03/07/2023Sulfa VfzmajbezsfKfjvkjd95/06/2023 Medications MedicationSigDispense QuantityRefillsLast FilledStart DateEnd DateStatus aspirin [...] bedtime for muscle spasms 30 tablet 4Active gabapentin (Neurontin) 300 MG capsule Take 300 mg by mouth in the morning and 300 mg before bedtime.5Active azithromycin (Zithromax) 250 MG tablet Indications:Acute non-recurrent frontal sinusitis2 tabs x 1 day, then 1 tab x 4 days. 6 tablet 5Active fexofenadine (Laury) 180 MG tablet Indications:Allergy, initial encounterTake 1 tablet (180 mg) by mouth Daily as needed (alleriges) 90 tablet 504/6Active ezetimibe (Zetia) 10 MG tablet Indications:Mixed hyperlipidemiaTAKE 1 TABLET BY MOUTH DAILY 90 tablet 5Active atorvastatin (Lipitor) 80 MG tablet Indications:Mixed hyperlipidemiaTAKE 1 TABLET BY MOUTH AT BEDTIME 90 tablet 5Active meloxicam (Mobic) 15 MG tablet Indications:Chronic gouty arthritisTAKE 1 TABLET BY MOUTH DAILY 90 tablet 5Active Fluticasone-Salmeterol 100-50 MCG/ACT aerosol powder Indications:Mild intermittent asthma without complication (HCC)INHALE 1 PUFF BY MOUTH TWICE DAILY 60 each 5Active Fluticasone-Salmeterol 100-50 MCG/ACT aerosol powder Indications:Mild intermittent asthma without complication (HCC)INHALE 1 PUFF DAILY NEEDED for SHORTNESS OF BREATH 60 each /36751609/02/2024Discontinued Active Problems ProblemNoted DateDiagnosed DateDegenerative disc disease, ghiyte2503/07/2023 Essential rwzkwvmpnydn09/06/7792Nqtd54/06/2023Hallux valgus (acquired), right foot03/07/2023Mild intermittent asthma without vymowseukdbr06/06/2023Mixed vpqvkfkyunkunl68/06/2023Hammer toe of right foot03/07/2023Family history of prostate aumoxu6011/14/2018Long term current use of anticoagulant therapy 11/14/2018Nicotine aydgrinvds21/15/2019Chronic gouty zyfauvkfe92/21/2017Other allergic /04/2011 Encounters DateTypeDepartmentCare NjovUqscgccgpuv58/01/2025Refill [facility] [address] [facility] [address] [place] [phone] Barb Ocasio PA Mild intermittent asthma without complication (HCC)5Clinisync Result Encounter [facility] External Department Unsolicited Provider, Generic External Data 06/06/2025Results Follow-Up [facility] [address] [facility] [address] [place] [address] Summer Hernandez LPN Comprehensive metabolic panel06/05/2025 9:30 AM ESTOffice Visit [facility] [address] [facility] [address] [place] [phone] Lenore Bray NP Hypotension, unspecified hypotension type (Primary Dx); Dizziness; Light headed; Qzoeuimncod57/04/2025amboo flowsheet [facility] [address] [facility] [address] [place] [address] Lenore Bray NP 06/05/20250617Rialmy61/24/2025Refill [facility] [address] [facility] [address] [place] [address] Rashaun Morales MD Gout, unspecified; Mixed hyperlipidemia ; Chronic gouty arthritisfrom Last 3 Months Immunizations ImmunizationAdministration DatesNext DueInfluenza, injectable, MDCK, preservative free, ozaiagapohcg31/02/2022Influenza, injectable, quadrivalent, preservative free06/13/2020Influenza, seasonal, intradermal, preservative free 05/10/2017,05/30/2014Tetanus toxoid, kxxttaod67/08/2014Zoster, Recombinant 06/03/2022 Family History Medical HistoryRelationNameCommentsProstate cancerFatherRelationNameStatus [...] drinks on one occasion?Never03/08/2023HQ-2AnswerDate RecordedPatient Health Questionnaire-2 Qodrq80308/05/2024Sex and Gender InformationValueDate RecordedSex Assigned at BirthNot on fileLegal SexMale 10/14/2022 7:00 PM EDTGender IdentityNot on fileSexual OrientationNot on file Last Filed Vital Signs Vital SignReadingTime TakenCommentsBlood Znbvequm824/5806/05/2025 9:32 AM EST Vrkgu066610/2024 9:32 AM IVYPymnkvxzwhb59.4 ??C (97.5 ??F)09/14/2024 2:52 PM ESTRespiratory Pdpg382208/05/2024 9:32 AM ESTOxygen Intspkmiiv30%06/05/2025 9:32 AM ESTInhaled Oxygen Concentration--Bpiwcg71.4 kg (186 lb)06/05/2025 9:32 AM EST Szzeey067.8 cm (5' 10 )06/05/2025 9:32 AM ESTBody Mass Index26.6906/05/2025 9:32 AM EST Plan of Treatment Health MaintenanceDue DateLast DoneCommentsCT Trzalnvuweeq1958FOBT 1960 8701Tmyvblsyowaea1958Pneumococcal Vaccine: 65+ Years (1 of 2 - PCV) 1977FIT10/26/, 08/28/2017FIT-DNA/, 04/16/2021Influenza Vaccine (#1)511/09/2021, 06/13/2020, 05/10/2017, Additional history ltzdhjSkpsyiqbfai08/02/203112/09/2020, 07/03/2021, 07/03/2021 Colorectal Cancer Spknqjfsq05/02/2031 Procedures Procedure NamePriorityDate/TimeAssociated DiagnosisCommentsVASC US ABDOMINAL AORTA ANUERYSM AAA YZYRROYQT21/14/2025 10:43 AM EST COMPREHENSIVE METABOLIC QLOKCNgvikdc62/04/2025 1:10 PM EST Hypotension, unspecified hypotension type Dizziness Light headed PJHUVEVMAHIEfexxyq66/02/2021 12:00 PM EST LAB COLOGUARD?? COLON CANCER LMSRDPYzklefq63/15/2021 FECAL GLOBIN BY LMJQOGLHLUKYCOHWfunuyd40/27/2019 from Last 3 Months or Most Recently Relevant to Health Maintenance Results * Vascular US abdominal aorta anuerysm AAA screening (06/15/2025 10:43 AM EST) Anatomical RegionLateralityModalityAbdomenUltrasoundSpecimen (Source) Anatomical Location / LateralityCollection Method / VolumeCollection Time Received Time06/15/2025 10:43 AM EST Narrative 06/15/2025 10:45 AM EST [facility] ?[address] ? [place], [id number] ? Ultrasound Report ? Signed ? Patient: HARDIK MAYO L ?MR#: [id number] ?? : 1960 ?Acct:[id number] ?? Age/Sex: 65 / M ?ADM Date: 06/15/25 ?? Loc: CARD ? Attending Dr: CHRISTELLE QUIROZ M.D. ? Ordering Physician: CHRISTELLE QUIROZ M.D. ?? Date of Service: 06/15/25 ?? Procedure(s): US abdominal aortic aneurysm ?? Accession Number(s): [id number] ? cc: RASHAUN MORALES ; CHRISTELLE QUIROZ M.D. ? [facility] ? [address] [facility] ? [place] [address] ? Patient Name: ?? HARDIK Leblanc DEARTH ? MRN: [facility]:[id number] ? date: 1960 ?Sex: M ?? Assigned Patient Location: CARD ?? Current Patient Location: CARD ?? Accession/Order Number: [id number] ?? Exam Date: 06/15/2025 ??09:30 ?Report Date: 06/15/2025 ??10:43 ? At the request of: ?? CHRISTELLE ??GABRIELLA ? Procedure: ??US abdominal aortic aneurysm ? ULTRASOUND OF THE ABDOMINAL AORTA ? CLINICAL DATA: Palpable aorta. ??History of tobacco use. ? COMPARISON: CT lumbar spine 12/07/2023 ? Real-time ultrasound evaluation of the abdominal aorta was performed. ??Mild ?? atherosclerotic plaque is suspected. ??No focal aneurysmal dilatation is seen. ? Proximally, the aorta measures 2.8 cm AP by 2.9 cm in transverse dimension. ? Through the midsegment, the aorta measures 2.5 x 3.4 cm. ??Distally, the aortic ?? diameter measures 2.4 x 2.0 cm. ??The bifurcation is visualized and the iliac ?? arteries are normal caliber. ??There is no periaortic fluid. ? US/US abdominal aortic aneurysm ?? IMPRESSION: ? SLIGHTLY ECTATIC ABDOMINAL AORTA ? Impression dictated by: Barb Bro M.D. ??06/15/2025 10:43 AM ? Dictation Location: [place] [address] ? Electronically authenticated by: [id number] ??Y ?? Date: 06/15/2025 ??10:43 ? Dictated By: ?Barb Bro M.D. ? Signed By: ?06/15/25 1045 ? DD/ 1043 ? TD/TT: ? Software Integrator: Procedure Note Radiology, Radiologist, MD - 06/15/2025 [place] [address] Ultrasound Report Signed Patient: HARDIK MAYO LMR#: [id number] : 1960cct:[id number] Age/Sex: 65 / MADM Date: 06/15/25 Loc: [facility] Attending Dr: CHRISTELLE QUIROZ M.D. Ordering Physician: CHRISTELLE QUIROZ M.D. Date of Service: 06/15/25 Procedure(s): US abdominal aortic aneurysm Accession Number(s): [id number] cc: RASHAUN MORALES ; CHRISTELLE QUIROZ M.D. The [place] [id number] Patient Name: HARDIK MAYO MRN: [facility]:[id number] date: 1960 Sex: M Assigned Patient Location: CARD Current Patient Location: CARD Accession/Order Number: [id number] Exam Date: 06/15/2025 09:30 Report Date: 06/15/2025 10:43 At the request of: CHRISTELLE QUIROZ MD Procedure: US abdominal aortic aneurysm ULTRASOUND OF THE ABDOMINAL AORTA CLINICAL DATA: Palpable aorta. History of tobacco use. COMPARISON: CT lumbar spine 12/07/2023 Real-time ultrasound evaluation of the abdominal aorta was performed.Mild atherosclerotic plaque is suspected. No focal aneurysmal dilatation isseen. Proximally, the aorta measures 2.8 cm AP by 2.9 cm in transversedimension. Through the midsegment, the aorta measures 2.5 x 3.4 cm. Distally, theaortic diameter measures 2.4 x 2.0 cm. The bifurcation is visualized and theiliac arteries are normal caliber. There is no periaortic fluid. US/US abdominal aortic aneurysm IMPRESSION: SLIGHTLY ECTATIC ABDOMINAL AORTA Impression dictated by: Barb Bro M.D. 06/15/2025 10:43 AM Dictation Location: [place] [address] Electronically authenticated by: [id number] Y Date: 0:43 Dictated By: Barb Bro M.D. Signed By:06/15/25 1045 DD/ 1043 TD/TT: Software Integrator: Authorizing ProviderResult TypeResult StatusGeneric External Data ProviderIMG US PROCEDURESFinal Result * Comprehensive metabolic panel (06/05/2025 1:10 PM EST)ComponentValueRef Range Test MethodAnalysis TimePerformed AtPathologist WpcpigzmdWzpzves1389 - 99 mg/dLQUESTComment: ? Fasting reference interval MZM446 - 25 mg/dLQUESTCreatinine1.080.70 - 1.35 mg/fWWVTRZKEBG63> OR = 60 mL/min/1.51c5YLLSMSKN/CREATININE RATIOSEE NOTE:6 - (calc)QUESTComment: ?? Not Reported: BUN and Creatinine are within ?? reference range. ? Ppmbje725344 - 146 mmol/LQUESTPotassium, Bld4.23.5 - 5.3 mmol/AJAIGXLgotmftw532 98 - 110 mmol/LQUESTCarbon Pnsukho3546 - 32 mmol/LQUESTCalcium9.88.6 - 10.3 mg/dLQUESTPROTEIN, TOTAL6.56.1 - 8.1 g/dLQUESTALBUMIN4.63.6 - 5.1 g/dLQUEST GLOBULIN1.91.9 - 3.7 g/dL (calc)QUESTALBUMIN/GLOBULIN RATIO2.41.0 - 2.5 (calc) QUESTBILIRUBIN, TOTAL0.90.2 - 1.2 mg/dLQUESTALKALINE LPENOCBEFQT4633 - 144 U/L CVOOEPNZ4712 - 35 U/UGHSOEKAA516 - 46 U/LQUESTSpecimen (Source)Anatomical Location / LateralityCollection Method / VolumeCollection TimeReceived TimeBlood Venous blood specimen / Pxrwliv3006/05/2025 1:10 PM EST06/05/2025 1:10 PM EST Narrative Resulting Agency Comment Performing Organization Information ?Site ID: [email or web address] ?Name: [email or web address] [facility] ?Address: Perry Pineda , [address] [place] [address] ?Director: Ameya Beltrán MD Authorizing ProviderResult TypeResult StatusLenore Bray NPLAB BLOOD ORDERABLESFinal ResultPerforming OrganizationAddressCity/State/ZIP CodePhone Number [facility]ST * Colonoscopy (07/03/2021 12:00 PM EST)Anatomical RegionLateralityModality EndoscopySpecimen (Source)Anatomical Location / LateralityCollection Method / VolumeCollection TimeReceived Time07/03/2021 12:00 PM EST Narrative 07/03/2021 12:00 PM EST PERFORMED AT [facility] LOCATION:[id number] Negative Procedure Note CONVERSION, GENERIC - 12/16/2022 PERFORMED AT [facility] LOCATION:[id number] Negative Authorizing ProviderResult TypeResult StatusRashaun Morales MDENDOSCOPY PROCEDURE ORDERABLESFinal Result * (ABNORMAL) [...] screened with both Cologuard and colonoscopy. (Oscar Paredes et al, N Engl J Med 2014;370(14):5386-4485.) Cologuard may produce a false negative or false positive result (no colorectal cancer or precancerous polyp present at colonoscopy follow up). A negative Cologuard test result does not guarantee the absence of CRC or advanced adenoma (pre-cancer). The current Cologuard screening interval is every 3 years. ([place] [employer] Society and U.S. Multi-Society Task Force). Cologuard performance data in a 10,000 patient pivotal study using colonoscopy as the reference method can be accessed at the following location: www.[employer]/results. Additional description of the Cologuard test process, [...] VolumeCollection TimeReceived Time10/26/2018 Narrative Authorizing ProviderResult TypeResult StatusDajuana EVERETT LABSFinal ResultPerforming OrganizationAddressCity/State/ZIP CodePhone Number [facility] from Last 3 Months or Most Recently Relevant to Health Maintenance Insurance Care Teams Team MemberRelationshipSpecialtyStart Date Rashaun Morales MD [address] [address] PCP - GeneralInternal Medicine12/08/22 Barb Ocasio PA [address] [address] PCP - [facility]CO [facility]09/08/24
--- OUTSIDE RECORDS SUMMARY | 2025-07-24 07:09 | XMS_ITS | Clinical Summary ---
Author Organization [facility] tem Address [facility][id number] [address] [place] [address] Care Team Providers Care Community Health Nurse Name Role Phone Rashaun Morales MD Primary Care Provider [phone] Allergies Active AllergyReactionsCriticalityNoted DateCommentsPenicillinsOther (See Comments)07/02/2021 As [...] drink = 0.6 oz pure alcohol)occassional beerChildcareAnswerDate RgylupmkHrmcupghwTqfsumm97/12/2019 EmploymentAnswerDate NabmwhrnMailpdmgbsSnfxlbr16/12/2019Sex and Gender InformationValueDate RecordedSex Assigned at BirthNot on fileLegal SexMale 03/07/2015 11:24 AM EDTGender IdentityNot on fileSexual OrientationNot on file Last Filed Vital Signs Vital SignReadingTime TakenCommentsBlood Huakytru911/8012 8:33 AM EST Mvxey932207/03/2021 8:33 AM PAMZkcrtqpdznc92.7 ??C (98 ??F)07/03/2021 7:09 AM EST Respiratory Tysn772509/03/2020 8:33 AM ESTOxygen Fxakemhiof21%07/03/2021 8:33 AM ESTInhaled Oxygen Concentration--Hssvid89.2 kg (190 lb)07/03/2021 7:09 AM EST Kqrydn721.3 cm (5' 9 )07/03/2021 7:09 AM ESTBody Mass Index28.0607/03/2021 7:09 AM EST Plan of Treatment Health MaintenanceDue DateLast DoneCommentsDepression Rkoqgwqiq22/06/1970Tobacco Qmposkxno59/06/1970Adult BMI Cgteurboq89/06/1976DTaP,Tdap and Td Vaccines (1 - Tdap)1977Zoster (Shingles) Vaccine (1 of 2)2008Fall Risk Screening 2023OVID-19 Vaccine (3 - season)/, 10/08/2020 Influenza Dfcybxv82/07/2020, 05/10/2017RSV ( or age 60+ yrs) (1 - 1-dose 75+ series)2033 [employer] Not on file Insurance Care Teams Team MemberRelationshipSpecialtyStart DateEnd Date Rashaun Morales MD [address] [facility] [address] [place] [address] PCP - GeneralInternal Tbynsrih61/1/21
--- OUTSIDE RECORDS SUMMARY | 2025-07-24 07:09 | XMS_ITS | Clinical Summary ---
Author Organization [facility] Address [address] [place] [address] Care Team Providers Care Hazmat Cdl A Driver Name Role Phone Rashaun Morales MD Primary Care Provider [phone] Allergies Active AllergyReactionsCriticalityNoted DateCommentsPenicillinsOther,Unknown 07/02/2021 As a child Sulfa (Sulfonamide Antibiotics)Other,Aotlsyk4707/02/2021 As a child Medications MedicationSigDispense QuantityRefillsLast FilledStart [...] in the morning.Active Active Problems ProblemNoted DateDiagnosed DateAbnormal cardiovascular stress test07/18/2025 Chronic pain06/08/2025rthritis of lumbosacral spine06/08/2025Inflammation of both sacroiliac vraabk2706/08/2025Lumbar disc stlsbtiukg98/07/2025Essential zjypqkstglgc08/06/7943Sxrv15/06/2023Hallux valgus (acquired), right foot 03/07/2023Hammer toe of right foot03/07/2023Mild intermittent asthma without /06/2023Mixed npiuvbohxtufld50/06/2023Family history of prostate oezurp1111/14/2018Long term current use of anticoagulant ookiowk2711/14/2018Nicotine euflcmawvd87/15/2019Chronic gouty /21/2017Other allergic rhinitis 12/03/2010 Encounters DateTypeDepartmentCare EhqjOtqdgasweqt78/17/2025 10:40 AM ESTOffice Visit [facility] [address] [place] [facility] [place] [address] Neno Emery MD Dizziness (Primary Dx); Cardiovascular stress test abnormal; Abdominal aortic aneurysm (AAA) 30 to 34 mm in /17/2025Orders Only [facility] [address] [place] [facility] [place] [address] Viviana Felipe MA Abnormal cardiovascular stress test (Primary Dx); Abdominal aortic aneurysm (AAA) without rupture, unspecified part07/17/2025 Orders Only [facility] [address] [place] [facility] [place] [address] Ally Foster MD Bradycardia; Guesyhhrj52/10/2025 10:20 AM ESTOffice Visit [facility] [address] [place] [facility] [place] [address] Neno Emery MD Dizziness (Primary Dx); Bradycardia; Palpable abdominal aorta06/11/2025Orders Only [facility] [address] [place] [facility] [address] Viviana Felipe MA Bradycardia (Primary Dx); Dizziness; Palpable abdominal aortafrom Last 3 Months Family History Medical HistoryRelationNameCommentsHeart diseaseBrotherAortic aneurysmFather Heart diseaseFatherLung cancerMotherRelationNameStatusCommentsBrotherAliveFather DeceasedMotherDeceasedSisterDeceased Social History Tobacco UseTypesPacks/DayYears UsedDateSmoking Tobacco: FormerCigarettesStarted: 06/11/2005Smokeless Tobacco: NeverSex and Gender InformationValueDate Recorded Sex Assigned at KhdhuVklb18/07/2025 9:48 AM ESTLegal TbfEeoy84/05/2025 10:48 AM ESTGender KlbwexbnYxfk03/07/2025 9:48 AM ESTSexual OrientationHeterosexual or Bgzxhbvg09/07/2025 9:48 AM EST Last Filed Vital Signs Vital SignReadingTime TakenCommentsBlood Klwekqff157/8334407/18/2025 10:51 AM EST Pvifv648107/18/2025 10:51 AM ESTTemperature--Respiratory Rate--Oxygen Saturation 97%07/18/2025 10:51 AM ESTInhaled Oxygen Concentration--Sewpgx83.1 kg (192 lb) 07/18/2025 10:51 AM CEYFvfbou545.8 cm (5' 10 )07/18/2025 10:51 AM ESTBody Mass Index27.5507/18/2025 10:51 AM EST Plan of Treatment DateTypeDepartmentCare Team (Latest Contact Info)Dxwvqsalgvl76/05/2026 9:30 AM ESTHospital Encounter [facility] [address] [place] [address] Neno Emery MD [address] [place] [phone] Abnormal cardiovascular stress test08/06/2025 9:30 AM EST - 08/06/2025 10:30 AM ESTSurgery [facility] Heart [facility] [address] [place] [address] Neno Emery MD [address] [place] [address] Coronary angiographyHealth MaintenanceDue DateLast DoneCommentsCT Colonography 1960FOBT1958Medicare Annual Wellness (AWV)1960Sigmoidoscopy 1960Depression Gmajmobji56/06/1970Pneumococcal Vaccine: 50+ Years (1 of 2 - PCV)1977Adult Vofvmlo0104/07/1980FITFall Risk Gwbmwcqlq01/06/2023FIT-DNA/OVID-19 Vaccine ( season), 10/29/2020, 10/08/2020Influenza Vaccine (#1) , 06/13/2020, 05/10/2017, Additional history exists Rjmuojjmlvh84, 07/03/2021olorectal Cancer Xvhbqsjom51/02/2031 Zoster IlbmvfbyUekzvyuej53/24/2023, 06/03/2022HIB VaccinesAged OutNo longer eligible based on patient's age to complete this topicHPV VaccinesAged OutNo longer eligible based on patient's age to complete this topicIPV VaccinesAged OutNo longer eligible based on patient's age to complete this topicMeningococcal B VaccineAged OutNo longer eligible based on patient's age to complete this topicMeningococcal VaccineAged OutNo longer eligible based on patient's age to complete this topicRotavirus VaccinesAged OutNo longer eligible based on patient's age to complete this topic Procedures Procedure NamePriorityDate/TimeAssociated DiagnosisCommentsROUTINE STRESS (TREADMILL ONLY)Wrawjbh2107/17/2025 2:02 PM EST Bradycardia Dizziness ECG 12 LEAD UNIT XKTREAEKSStjahii63/10/2025 10:13 AM EST Dizziness from Last 3 Months Results * Routine Stress (Treadmill Only) (07/17/2025 2:02 PM EST)Anatomical Region LateralityModalityOther Narrative Authorizing ProviderResult TypeResult StatusChmaddi Emery MDC STRESS PROCEDURESFinal Result * ECG 12 lead unit performed (06/11/2025 10:13 AM EST)Specimen (Source) Anatomical Location / LateralityCollection Method / VolumeCollection Time Received Time Narrative Authorizing ProviderResult TypeResult StatusChmaddi Emery MDECG ORDERABLES Final Result from Last 3 Months Insurance Care Teams Team MemberRelationshipSpecialtyStart DateEnd Rashaun Morales MD [address] [facility] [address] [place] [address] PCP - GeneralInternal Fuqqzcvq12/7/25
--- OUTSIDE RECORDS SUMMARY | 2025-07-24 07:09 | XMS_ITS | Encounter Summary ---
Author Organization [facility] Address [address] [place] [address] Care Team Providers Care Cigarette Roller Name Role Phone Rashaun Morales MD Primary Care Provider [phone] Encounter Details DateTypeDepartmentCare Team (Latest Contact Info)Jsgkoxaifgg68/16/2025Orders Only [facility] [place] [address] [place] [address] ProviderAlly MD [facility] [place] [address] Bradycardia; Dizziness Social History Tobacco UseTypesPacks/DayYears UsedDateSmoking Tobacco: FormerCigarettesStarted: 06/11/2005Smokeless Tobacco: NeverSex and Gender InformationValueDate Recorded Sex Assigned at YufqwKrno07/07/2025 9:48 AM ESTLegal OcbAjbx28/05/2025 10:48 AM ESTGender KnwushneBidb40/07/2025 9:48 AM ESTSexual OrientationHeterosexual or Quaaridg25/07/2025 9:48 AM ESTdocumented as of this encounter Plan of Treatment DateTypeDepartmentCare Team (Latest Contact Info)Ecrbpgpxnwa70/05/2026 9:30 AM ESTHospital Encounter [facility] [address] [place] [address] Neno Emery MD [address] [facility] [place] [address] Abnormal cardiovascular stress test08/06/2025 9:30 AM EST - 08/06/2025 10:30 AM ESTSurgery [facility] [address] [facility] [place] [address] Neno Emery MD [address] [facility] [place] [address] Coronary angiographydocumented as of this encounter Procedures Procedure NamePriorityDate/TimeAssociated DiagnosisCommentsROUTINE STRESS (TREADMILL ONLY)Jdofjch1207/17/2025 2:02 PM EST Bradycardia Dizziness documented in this encounter Results * Routine Stress (Treadmill Only) (07/17/2025 2:02 PM EST)Anatomical Region LateralityModalityOther Narrative Authorizing ProviderResult TypeResult StatusChristopher Rupert [facility] STRESS PROCEDURESFinal Result documented in this encounter Visit Diagnoses Diagnosis Bradycardia Other specified cardiac dysrhythmias Dizziness Dizziness and giddiness Abnormal cardiovascular stress test- Primary Other nonspecific abnormal cardiovascular system function study Abnormal cardiovascular stress test Other nonspecific abnormal cardiovascular system function study documented in this encounter Care Teams Team MemberRelationshipSpecialtyStart DateEnd Rashaun Morales MD [address] [facility] [address] [place] [address] PCP - GeneralInternal Kneougiw76/7/25documented as of this encounter
--- NOTE | 2025-07-24 07:15 | CT_ITS ---
The [address] [address] Patient Name: MARSHALL ARTEAGA MRN: [facility]:[id number] date: 1960 Sex: M Assigned Patient Location: LAB Current Patient Location: LAB Accession/Order Number: [id number] Exam Date: 07/24/2025 07:35 Report Date: 07/24/2025 11:00 At the request of: CHRISTELLE QUIROZ MD Procedure: CT angio abdomen pelvis CTA OF THE ABDOMEN AND PELVIS WITH CONTRAST COMPARISON: CT lumbar spine 12/07/2023 and ultrasound 06/15/2025 CLINICAL DATA: Follow-up abdominal aortic aneurysm. Spiral images were obtained through the abdomen and pelvis following 100 mL of Omnipaque 350. Sagittal and coronal MIP as well as 3-D volume rendered reconstructions of the abdominal aorta and its branches were reviewed. This CT exam was performed using one or more following dose reduction techniques: Automated exposure control, adjustment of the mA and/or kV according to patient size, or use of iterative reconstruction technique. Limited cuts through the lung bases show tiny calcified right lower lobe granuloma. There are no other contributory findings. There is mild plaque at the abdominal aorta and iliac arteries. No aneurysm or dissection is seen. The visceral arteries are patent. There is luminal narrowing at the proximal celiac artery. No calcified gallstones are identified. No intrahepatic masses are seen. There are calcified splenic granulomas. The pancreas and adrenal glands show no acute findings. There is minor perinephric fibrofatty stranding. The renal nephrograms are symmetric. No hydronephrosis is noted. There are small abdominal lymph nodes. No ascites is seen. The small bowel loops are normal caliber. Stool is visualized along the colon. Mild dextroscoliotic curvature and degenerative changes are present at the spine. Images through the pelvis show no appendiceal inflammation. There is no dilated small bowel. There is a small amount of distal colonic stool. No diverticular disease is seen. The urinary bladder is poorly distended and the wall appears thickened. There is a mildly prominent prostate containing calcification. No ascites is seen. CT/CT angio abdomen pelvis IMPRESSION: ATHEROSCLEROTIC DISEASE, WITHOUT AORTIC ANEURYSM OR DISSECTION. NO BOWEL OR URINARY TRACT OBSTRUCTION. MILD PROSTATE HYPERTROPHY. Impression dictated by: Barb Bro M.D. 07/24/2025 11:00 AM Dictation Location: [place] [address] Electronically authenticated by: [id number] Y Date: 07/24/2025 11:00
[2025-07-24 07:22] LABS: Estimated GFR (African America >60 (>=60 mL/min/1.73m^2); Estimated GFR (Non-African Ame >60 (>=60 mL/min/1.73m^2)
== END 2025-07-24 07:07 | disposition home or self-care (01) ==
LOC: LAB 07:06
PROVIDERS: Pathology Anatomic Pathology & Clinical Pathology; PCP Internal Medicine; Visit Provider Internal Medicine Cardiovascular Disease
DX: Z01.818 Encounter for other preprocedural examination (principal); I71.40 Abdominal aortic aneurysm, without rupture, unspecified
CPT/HCPCS: 36415; 74174; 82565; Q9967